=== PATIENT | female | born 1990 | race Caucasian/White ===

== ENCOUNTER 2016-12-25 12:09 | Emergency (ER) | payer SELFPAY ==
[~2016-12-25] VITALS: Ht 162.6 cm; Wt 62.0 kg
[~2016-12-25 12:09] MED LIST: ALBU1AER INH; PRED20 PO
[2016-12-25 12:17] VITALS: BP 124/94; PULSE 65; TEMP 98
[2016-12-25] MEDS ORDERED: ONDANSETRON HCL 4 MG/2 ML VIAL IV PUSH ONE (12:45)
[2016-12-25] MEDS ORDERED: SODIUM CHLOR 0.9% 1000 ML INJ 1,000 ML IV ONE (12:45)
[2016-12-25] MEDS ORDERED: MORPHINE SULFATE 4 MG/ML INJ IV PUSH ONE (12:45)
--- NOTE | 2016-12-25 12:57 | PD ---
HPI Chief Complaint: Abdominal Pain Time Seen by Provider: 12:31 Travel History International Travel<30 days: No Contact w/Intl Traveler<30days: No Traveled to known affect area: No History of Present Illness HPI This is a 26-year-old female who presents to the emergency department with sudden onset right lower quadrant abdominal pain that started an hour prior to arrival radiating to her back, constant, severe, sharp and stabbing. She's vomited. She feels very nauseous. She's never had pain like this before. She has had some constipation. She denies any fevers or chills and denies any blood in her urine. She's not . The only Abdominal surgery she's had a . [facility] Past Medical History Medical History: Denies Significant Hx Diminished Hearing: No Immunizations Current: Yes Tetanus Vaccination: Unknown Influenza Vaccination: No ?: Not LMP: now Menopausal: Yes Past Surgical History Section: Yes (2012) Social History Alcohol Use: Yes (1 drink on the weekends per pt) Tobacco Use: Yes (1/4 pack per day ) Substance Use: Yes () Allergies-Medications (Allergen,Severity, Reaction): Coded Allergies: ciprofloxacin (Unverified Allergy, Severe, UNKNOWN, 12/25/16) Reported Meds & Prescriptions Reported Meds & Active Scripts Active Review of Systems Except as stated in HPI: all other systems reviewed are Neg Physical Exam Narrative GENERAL: Uncomfortable appearing SKIN: Focused skin assessment warm and dry. HEAD: Atraumatic. Normocephalic. EYES: Pupils equal and round. No injection or drainage. ENT: Moist mucous membranes NECK: Trachea midline. CARDIOVASCULAR: Regular rate and rhythm. No murmur appreciated. RESPIRATORY: Clear to auscultation. Breath sounds equal bilaterally. GASTROINTESTINAL: Abdomen soft, tender to palpation in the right lower quadrant and suprapubic region with no rebound or guarding. : Right CVA tenderness. MUSCULOSKELETAL: No obvious deformities. NEUROLOGICAL: Awake and alert. No obvious cranial nerve deficits. Moving all extremities. PSYCHIATRIC: Anxious and tearful. Data Data Last Documented VS Vital Signs Date Time Temp Pulse Resp B/P (MAP) Pulse Ox O2 Delivery O2 Flow Rate FiO2 12/25/16 13:57 99 16 108/64 (79) 100 Room Air 12/25/16 12:17 98.0 Orders Orders Ed Urine Pregnancytest Poc (12/25/16 12:39) Complete Blood Count With Diff (12/25/16 12:41) Comprehensive Metabolic Panel (12/25/16 12:41) ^ Insert Iv (12/25/16 12:41) Ct Abd/Pel W/O Iv Contrast (12/25/16 ) Urinalysis - C+S If Indicated (12/25/16 12:41) Morphine Inj (Morphine Inj) (12/25/16 12:45) Ondansetron Inj (Zofran Inj) (12/25/16 12:45) Sodium Chlor 0.9% 1000 Ml Inj (Ns 1000 M (12/25/16 12:45) Morphine Inj (Morphine Inj) (12/25/16 14:00) Ketorolac Inj (Toradol Inj) (12/25/16 14:45) Labs Laboratory Tests Test 12/25/16 12:50 12/25/16 15:00 White Blood Count 11.5 TH/MM3 Red Blood Count 4.77 MIL/MM3 Hemoglobin 13.6 GM/DL Hematocrit 40.7 % Mean Corpuscular Volume 85.2 FL Mean Corpuscular Hemoglobin 28.5 PG Mean Corpuscular Hemoglobin Concent 33.4 % Red Cell Distribution Width 14.9 % Platelet Count 187 TH/MM3 Mean Platelet Volume 10.2 FL Neutrophils (%) (Auto) 75.2 % Lymphocytes (%) (Auto) 13.3 % Monocytes (%) (Auto) 6.6 % Eosinophils (%) (Auto) 2.8 % Basophils (%) (Auto) 2.1 % Neutrophils # (Auto) 8.7 TH/MM3 Lymphocytes # (Auto) 1.5 TH/MM3 Monocytes # (Auto) 0.8 TH/MM3 Eosinophils # (Auto) 0.3 TH/MM3 Basophils # (Auto) 0.2 TH/MM3 CBC Comment AUTO DIFF Differential Comment AUTO DIFF CONFIRMED Blood Urea Nitrogen 11 MG/DL Creatinine 0.87 MG/DL Random Glucose 145 MG/DL Total Protein 6.8 GM/DL Albumin 3.4 GM/DL Calcium Level 8.5 MG/DL Alkaline Phosphatase 48 U/L Aspartate Amino Transf (AST/SGOT) 13 U/L Alanine Aminotransferase (ALT/SGPT) 13 U/L Total Bilirubin 0.4 MG/DL Sodium Level 142 MEQ/L Potassium Level 3.8 MEQ/L Chloride Level 110 MEQ/L Carbon Dioxide Level 23.1 MEQ/L Anion Gap 9 MEQ/L Estimat Glomerular Filtration Rate 80 ML/MIN Urine pH 6.0 Urine Protein TRACE mg/dL Urine Glucose (UA) NEG mg/dL Urine Ketones TRACE mg/dL Urine Occult Blood LARGE Urine Nitrite NEG Urine Bilirubin NEG Urine Leukocyte Esterase TRACE MDM Medical Decision Making Medical Screen Exam Complete: Yes Emergency Medical Condition: Yes Interpretation(s) Mild leukocytosis Electrolytes are reassuring Urinalysis demonstrates trace leukocyte esterase CT abdomen and pelvis demonstrates a 4 mm distal right ureteral stone Differential Diagnosis Nephrolithiasis, ovarian torsion, ovarian cyst rupture, appendicitis, pyelonephritis Narrative Course This is a 26-year-old female who presents to the emergency department with sudden onset severe right sided abdominal pain. Labs are obtained which are reassuring. Urinalysis is equivocal for UTI. CT abdomen and pelvis demonstrates a 4 mm distal stone. Patient was given several doses of morphine and was reassessed several times. She was given IV fluids and Zofran. She feels much better upon discharge. I referred her to a urologist as an outpatient. Diagnosis Primary Impression: Kidney stone Referrals: Jaret Alarcon DO Patient Instructions: General Instructions Additional Instructions: If you develop fever, persistent vomiting, back pain, or inability to eat return to the emergency department as your urine infection may have progressed to a kidney infection. Complete your antibiotics as prescribed. Stay well hydrated with Gatorade or water. Followup with your primary care physician in 2-3 days if your symptoms have not resolved. Med/Other Pt SpecificInfo: Prescription(s) given Scripts Ondansetron Odt (Zofran Odt) 4 Mg Tab 4 MG SL Q6HR Y for Nausea/Vomiting, #15 TAB 0 Refills Prov: Marla Zamora MD 12/25/16 Hydrocodone-Acetaminophen (Lortab) 5-325 Mg Tab 1-2 TAB PO Q6H Y for PAIN, #10 TAB 0 Refills Prov: Marla Zamora MD 12/25/16 Cephalexin (Keflex) 500 Mg Cap 500 MG PO Q12H for Infection for 7 Days, #14 CAP 0 Refills Prov: Marla Zamora MD 12/25/16 Disposition: 01 DISCHARGE HOME Condition: Stable Marla Zamora MD Dec 25, 2016 12:57
[2016-12-25 13:01] LABS: AUTOMATED NEUTROPHIL # 8.7 TH/MM3 (1.8-7.7); BASOPHIL # 0.2 TH/MM3 (0-0.2); BASOPHIL % 2.1 % (0.0-2.0); EOSINOPHIL # 0.3 TH/MM3 (0-0.4); EOSINOPHIL % 2.8 % (0.0-4.0); HEMATOCRIT 40.7 % (35.0-46.0); LYMPH % 13.3 % (9.0-44.0); LYMPHOCYTE # 1.5 TH/MM3 (1.0-4.8); MEAN CELL VOLUME 85.2 FL (80.0-100.0); MEAN CORPUSCULAR HEMOGLOBIN 28.5 PG (27.0-34.0); MEAN CORPUSCULAR HGB CONC 33.4 % (32.0-36.0); MONO % 6.6 % (0.0-8.0); NEUT % 75.2 % (16.0-70.0); PLATELET COUNT 187 TH/MM3 (150-450); RED BLOOD COUNT 4.77 MIL/MM3 (4.00-5.30); RED CELL DISTRIBUTION WIDTH 14.9 % (11.6-17.2); WHITE BLOOD COUNT 11.5 TH/MM3 (4.0-11.0)
[2016-12-25 13:03] LABS: HEMO FLAGS AUTO DIFF
[2016-12-25 13:09] LABS: CHLORIDE 110 MEQ/L (98-107); POTASSIUM 3.8 MEQ/L (3.5-5.1); SODIUM (NA) 142 MEQ/L (136-145)
[2016-12-25 13:13] LABS: ANION GAP 9 MEQ/L (5-15); BICARBONATE 23.1 MEQ/L (21.0-32.0); BLOOD UREA NITROGEN 11 MG/DL (7-18)
[2016-12-25 13:16] LABS: ALT (GPT) 13 U/L (10-53); AST (GOT) 13 U/L (15-37); GLOMERULAR FILTRATION RATE 80 ML/MIN (>89)
[2016-12-25 13:17] LABS: TOTAL BILIRUBIN ADULT 0.4 MG/DL (0.2-1.0)
[2016-12-25 13:19] LABS: ALKALINE PHOSPHATASE 48 U/L (45-117); SCAN/DIFF AUTO DIFF CONFIRMED
[2016-12-25 13:57] VITALS: BP 108/64; PULSE 99; RESP 16; O2SAT 100
[2016-12-25] MEDS ORDERED: MORPHINE SULFATE 2 MG/ML INJ IV PUSH ONE (14:00)
--- NOTE | 2016-12-25 14:00 | RADRPT ---
EXAM DATE/TIME: 12/25/2016 12:59 [facility] COMPARISON: No previous studies available for comparison. INDICATIONS : Right flank pain. ORAL CONTRAST: No oral contrast ingested. RADIATION DOSE: 9.37 CTDIvol (mGy) MEDICAL HISTORY : None SURGICAL HISTORY : c section ENCOUNTER: Initial ACUITY: 2 days PAIN SCALE: 10/10 LOCATION: Right flank TECHNIQUE: Volumetric scanning of the abdomen and pelvis was performed. Using automated exposure control and ad justment of the mA and/or kV according to patient size, radiation dose was kept as low as reasonably achievable to obtain optimal diagnostic quality images. DICOM format image data is available electro nically for review and comparison. FINDINGS: Examination of the lung bases demonstrates no abnormality. No pleural fluid is identified. No pulmona ry nodules are present. The liver is normal in size and free of focal defects. The spleen is mildly e nlarged. The adrenal glands are unremarkable. There is a single stone within the left kidney without hydronephrosis measuring 1 mm. There is a 4 mm distal right ureteral stone with mild hydronephrosis and hydroureter. There is a single stone within the gallbladder without wall thickening or pericholec ystic fluid measuring 8 mm CONCLUSION: 1. 4 mm distal right ureteral stone with mild right hydronephrosis and hydroureter. 2. Tiny 1 mm nonobstructing left renal stone 3. Cholelithiasis Didier Camacho MD on December 25, 2016 at 13:57 Board Certified Radiologist. This report was verified electronically.
[2016-12-25] MEDS ORDERED: KETOROLAC TROMETHAMINE 30 MG/ML (IVP) VIAL IV PUSH ONE (14:45)
[2016-12-25 15:13] LABS: BLOOD, URINE LARGE (NEG); GLUCOSE,URINE NEG (NEG); KETONE, URINE TRACE mg/dL (NEG); NITRITE,URINE NEG (NEG)
[2016-12-25 15:30] LABS: METHOD OF COLLECTION CLEAN CATCH; URINE COLOR YELLOW (YELLW/STRAW)
[2016-12-25 15:33] LABS: COMMENT (UR) CULTURE INDICATED; COMMENT2 (UR) MUCOUS PRESENT; CULTURE IF INDICATED CULTURE INDICATED; RBC, URINE 15-19 /hpf (0-3); SQUAMOUS EPITHELIAL CELL URINE 0-5 /hpf (0-5)
[2016-12-25] MEDS ORDERED: HYDR-3533 PO (15:34)
[2016-12-25] MEDS ORDERED: CEPH-460 PO (15:34)
[2016-12-25] MEDS ORDERED: ZOFR4TAB3 SL (15:34)
[2016-12-25 16:06] VITALS: BP 114/75; PULSE 64; RESP 16; O2SAT 100
== END 2016-12-25 16:07 | disposition home or self-care (01) ==
LOC: PHED 12:09
DX: F17.210 Nicotine dependence, cigarettes, uncomplicated (principal); F12.90 Cannabis use, unspecified, uncomplicated; N20.0 Calculus of kidney; B96.89 Other specified bacterial agents as the cause of diseases classified elsewhere
CPT/HCPCS: 74176; 80053; 81001; 84703; 85025; 87086; 96361; 96374; 96375; 96376; 99285; J1885; J2270; J2405; J7030

== ENCOUNTER 2016-12-30 15:23 | Emergency (ER) | payer MEDICAID ==
[~2016-12-30] VITALS: Ht 162.6 cm; Wt 65.0 kg
[~2016-12-30 15:23] MED LIST changes: -ALBU1AER INH; +CEPH-460 PO; +HYDR-3533 PO; -PRED20 PO; +ZOFR4TAB3 SL
[2016-12-30 15:27] VITALS: BP 115/81; PULSE 75; RESP 15; TEMP 97.9; O2SAT 97
[2016-12-30] MEDS ORDERED: SODIUM CHLOR 0.9% 1000 ML INJ 1,000 ML IV SCH (15:54)
[2016-12-30] MEDS ORDERED: MORPHINE SULFATE 4 MG/ML INJ IV PUSH ONE ×2 (16:00→17:00)
[2016-12-30] MEDS ORDERED: SODIUM CHLORIDE 0.9% FLUSH 10 ML FLUSH IV FLUSH PRN (16:00)
[2016-12-30] MEDS ORDERED: KETOROLAC TROMETHAMINE 30 MG/ML (IVP) VIAL IVP ONE (16:00)
[2016-12-30] MEDS ORDERED: ONDANSETRON HCL 4 MG/2 ML VIAL IVP ONE (16:00)
--- NOTE | 2016-12-30 16:02 | PD ---
HPI Chief Complaint: Abdominal Pain Time Seen by Provider: 15:40 Travel History International Travel<30 days: No Contact w/Intl Traveler<30days: No Traveled to known affect area: No History of Present Illness HPI The patient is a 26-year-old female who presents to the emergency department for right flank pain. The patient was seen in emergency department on December 25, 2016 for right flank pain. The patient was diagnosed with a 4 mm distal right ureteral stone and was discharged home and advised to follow-up with a urologist. The patient states she does not have insurance, therefore, did not follow-up with the urologist. The patient was doing well for the last 3 -4 days until earlier today when the right flank pain started once again. The patient complains of dysuria, frequency, urgency, with very little urine output. The pain radiates from the right flank Into the right mid back. She denies any fever, chills, or sweats. Last menstrual cycle was several weeks ago , she denies . She denies any vaginal discharge or bleeding. Symptoms are moderate, exacerbated by recent kidney stone, and there are no current alleviating factors. PFSH Past Medical History Diminished Hearing: No Kidney Stones: Yes Immunizations Current: Yes ?: Not LMP: 1.5 WEEKS AGO Menopausal: Yes Past Surgical History Section: Yes (2012) Social History Alcohol Use: Yes (1 drink on the weekends per pt) Tobacco Use: Yes (1/4 pack per day ) Substance Use: Yes (mj) Allergies-Medications (Allergen,Severity, Reaction): Coded Allergies: ciprofloxacin (Unverified Allergy, Severe, UNKNOWN, 12/30/16) Reported Meds & Prescriptions Reported Meds & Active Scripts Active Ibuprofen 600 Mg Tab 600 Mg PO Q6H PRN Puposky (Hydrocodone-Acetaminophen) 5-325 mg Tab 1 Tab PO Q6H PRN Bactrim DS (Sulfamethoxazole-Trimethoprim) 800-160 Mg Tab 1 Tab PO BID Flomax (Tamsulosin HCl) 0.4 Mg Cap 0.4 Mg PO HS 7 Days Zofran Odt (Ondansetron Odt) 4 Mg Tab 4 Mg SL Q6HR PRN Lortab (Hydrocodone-Acetaminophen) 5-325 Mg Tab 1-2 Tab PO Q6H PRN Keflex (Cephalexin) 500 Mg Cap 500 Mg PO Q12H 7 Days Review of Systems Except as stated in HPI: all other systems reviewed are Neg General / Constitutional: No: Fever Cardiovascular: No: Chest Pain or Discomfort Respiratory: No: Shortness of Breath Gastrointestinal: No: Nausea, Vomiting, Abdominal Pain Genitourinary: Positive: Urgency, Frequency, Dysuria, Flank Pain, No: Hematuria Skin: No Rash Physical Exam Narrative GENERAL: Awake, alert, pleasant 26-year-old female who appears her stated age and is in no acute respiratory distress. SKIN: Focused skin assessment warm/dry. HEAD: Atraumatic. Normocephalic. EYES: No injection or drainage. ENT: No nasal bleeding or discharge. Mucous membranes pink and moist. NECK: Trachea midline. No JVD. CARDIOVASCULAR: Regular rate and rhythm. No murmur appreciated. RESPIRATORY: No accessory muscle use. Clear to auscultation. Breath sounds equal bilaterally. GASTROINTESTINAL: Abdomen soft, mild tenderness over the right flank. Negative McBurney's. Negative Perales's. Back: Right CVA tenderness. MUSCULOSKELETAL: No obvious deformities. No clubbing. No cyanosis. No edema. NEUROLOGICAL: Awake and alert. No obvious cranial nerve deficits. Motor grossly within normal limits. Normal speech. PSYCHIATRIC: Appropriate mood and affect; insight and judgment normal. Data Data Last Documented VS Vital Signs Date Time Temp Pulse Resp B/P (MAP) Pulse Ox O2 Delivery O2 Flow Rate FiO2 12/30/16 16:17 98 Room Air 12/30/16 15:27 97.9 75 15 115/81 (92) Orders Orders Ed Urine Pregnancytest Poc (12/30/16 15:46) Basic Metabolic Panel (Bmp) (12/30/16 15:54) Complete Blood Count With Diff (12/30/16 15:54) Urinalysis - C+S If Indicated (12/30/16 15:54) Iv Access Insert/Monitor (12/30/16 15:54) Ecg Monitoring (12/30/16 15:54) Oximetry (12/30/16 15:54) Morphine Inj (Morphine Inj) (12/30/16 16:00) Ondansetron Inj (Zofran Inj) (12/30/16 16:00) Sodium Chlor 0.9% 1000 Ml Inj (Ns 1000 M (12/30/16 15:54) Sodium Chloride 0.9% Flush (Ns Flush) (12/30/16 16:00) Ketorolac Inj (Toradol Inj) (12/30/16 16:00) Urine Culture (12/30/16 16:00) Ceftriaxone Inj (Rocephin Inj) (12/30/16 16:45) Morphine Inj (Morphine Inj) (12/30/16 17:00) Labs Laboratory Tests Test 12/30/16 16:00 White Blood Count 8.6 TH/MM3 Red Blood Count 4.79 MIL/MM3 Hemoglobin 13.6 GM/DL Hematocrit 40.7 % Mean Corpuscular Volume 85.0 FL Mean Corpuscular Hemoglobin 28.3 PG Mean Corpuscular Hemoglobin Concent 33.3 % Red Cell Distribution Width 14.9 % Platelet Count 181 TH/MM3 Mean Platelet Volume 9.5 FL Neutrophils (%) (Auto) 54.6 % Lymphocytes (%) (Auto) 27.9 % Monocytes (%) (Auto) 10.9 % Eosinophils (%) (Auto) 4.7 % Basophils (%) (Auto) 1.9 % Neutrophils # (Auto) 4.7 TH/MM3 Lymphocytes # (Auto) 2.4 TH/MM3 Monocytes # (Auto) 0.9 TH/MM3 Eosinophils # (Auto) 0.4 TH/MM3 Basophils # (Auto) 0.2 TH/MM3 CBC Comment DIFF FINAL Differential Comment Urine Color STRAW Urine Turbidity CLOUDY Urine pH 8.5 Urine Specific Alpha 1.017 Urine Protein NEG mg/dL Urine Glucose (UA) NEG mg/dL Urine Ketones NEG mg/dL Urine Occult Blood TRACE Urine Nitrite NEG Urine Bilirubin NEG Urine Leukocyte Esterase SMALL Urine RBC 0-3 /hpf Urine WBC 9-14 /hpf Urine Squamous Epithelial Cells 0-5 /hpf Urine Amorphous Sediment LARGE Urine Bacteria OCC /hpf Microscopic Urinalysis Comment CULTURE INDICATED Blood Urea Nitrogen 8 MG/DL Creatinine 0.94 MG/DL Random Glucose 80 MG/DL Calcium Level 8.4 MG/DL Sodium Level 142 MEQ/L Potassium Level 4.1 MEQ/L Chloride Level 107 MEQ/L Carbon Dioxide Level 29.1 MEQ/L Anion Gap 6 MEQ/L Estimat Glomerular Filtration Rate 73 ML/MIN MDM Medical Decision Making Medical Screen Exam Complete: Yes Emergency Medical Condition: Yes Medical Record Reviewed: Yes Interpretation(s) Laboratory Tests Test 12/30/16 16:00 White Blood Count 8.6 TH/MM3 Red Blood Count 4.79 MIL/MM3 Hemoglobin 13.6 GM/DL Hematocrit 40.7 % Mean Corpuscular Volume 85.0 FL Mean Corpuscular Hemoglobin 28.3 PG Mean Corpuscular Hemoglobin Concent 33.3 % Red Cell Distribution Width 14.9 % Platelet Count 181 TH/MM3 Mean Platelet Volume 9.5 FL Neutrophils (%) (Auto) 54.6 % Lymphocytes (%) (Auto) 27.9 % Monocytes (%) (Auto) 10.9 % Eosinophils (%) (Auto) 4.7 % Basophils (%) (Auto) 1.9 % Neutrophils # (Auto) 4.7 TH/MM3 Lymphocytes # (Auto) 2.4 TH/MM3 Monocytes # (Auto) 0.9 TH/MM3 Eosinophils # (Auto) 0.4 TH/MM3 Basophils # (Auto) 0.2 TH/MM3 CBC Comment DIFF FINAL Differential Comment Urine Color STRAW Urine Turbidity CLOUDY Urine pH 8.5 Urine Specific Alpha 1.017 Urine Protein NEG mg/dL Urine Glucose (UA) NEG mg/dL Urine Ketones NEG mg/dL Urine Occult Blood TRACE Urine Nitrite NEG Urine Bilirubin NEG Urine Leukocyte Esterase SMALL Urine RBC 0-3 /hpf Urine WBC 9-14 /hpf Urine Squamous Epithelial Cells 0-5 /hpf Urine Amorphous Sediment LARGE Urine Bacteria OCC /hpf Microscopic Urinalysis Comment CULTURE INDICATED Blood Urea Nitrogen 8 MG/DL Creatinine 0.94 MG/DL Random Glucose 80 MG/DL Calcium Level 8.4 MG/DL Sodium Level 142 MEQ/L Potassium Level 4.1 MEQ/L Chloride Level 107 MEQ/L Carbon Dioxide Level 29.1 MEQ/L Anion Gap 6 MEQ/L Estimat Glomerular Filtration Rate 73 ML/MIN Differential Diagnosis Differential diagnosis includes nephrolithiasis, hydronephrosis, acute kidney injury, acute renal failure, UTI, pyelonephritis, atypical appendicitis. Narrative Course IV was established, labs are drawn and sent, and the patient was placed on cardiac telemetry monitoring and continuous pulse oximetry monitoring. The patient was administered morphine, Toradol, Zofran, and IV fluids. I reviewed the patient's EMR, she had a CT performed on December 25 which revealed a 4 mm distal right ureteral stone with mild hydronephrosis and hydroureter. UA at that time had RBCs and WBCs, culture was unremarkable and revealed mixed eleonora. The patient was advised to follow-up with urology at that time per notes. The patient's UA still reveals WBCs, no evidence of blood. Therefore, the patient was administered Rocephin 1 g intravenously. She is advised to stop taking Keflex and take Bactrim as directed. Kidney function is within normal limits. The patient may still have a stone at the UV junction with mild hydronephrosis and is advised to follow-up with urology. She was administered another dose of pain medications and I will place her on Flomax. She will be provided a copy of her labs at discharge. Diagnosis Primary Impression: Nephrolithiasis Additional Impression: UTI (urinary tract infection) Qualified Codes: N30.00 - Acute cystitis without hematuria Patient Instructions: General Instructions Additional Instructions: Medications as directed. Please provide the patient a copy of her labs at discharge. Follow-up with urology. Return if symptoms worsen or progress. Med/Other Pt SpecificInfo: Prescription(s) given, Med Stopped (Stop cephalexin) Scripts Ibuprofen (Ibuprofen) 600 Mg Tab 600 MG PO Q6H Y for Pain/Inflammation, #20 TAB 0 Refills Prov: Leon Arce MD 12/30/16 Hydrocodone-Acetaminophen (Puposky) 5-325 mg Tab 1 TAB PO Q6H Y for PAIN, #15 TAB 0 Refills Prov: Leon Arce MD 12/30/16 Sulfamethoxazole-Trimethoprim (Bactrim DS) 800-160 Mg Tab 1 TAB PO BID for Infection, #14 TAB 0 Refills Prov: Leon Arce MD 12/30/16 Tamsulosin (Flomax) 0.4 Mg Cap 0.4 MG PO HS for Manage Prostate Problems for 7 Days, #30 CAP 0 Refills Prov: Leon Arce MD 12/30/16 Disposition: 01 DISCHARGE HOME Condition: Stable Leon Arce MD Dec 30, 2016 16:02
[2016-12-30 16:12] LABS: AUTOMATED NEUTROPHIL # 4.7 TH/MM3 (1.8-7.7); BASOPHIL # 0.2 TH/MM3 (0-0.2); BASOPHIL % 1.9 % (0.0-2.0); EOSINOPHIL # 0.4 TH/MM3 (0-0.4); EOSINOPHIL % 4.7 % (0.0-4.0); HEMATOCRIT 40.7 % (35.0-46.0); HEMO FLAGS DIFF FINAL; LYMPH % 27.9 % (9.0-44.0); LYMPHOCYTE # 2.4 TH/MM3 (1.0-4.8); MEAN CORPUSCULAR HEMOGLOBIN 28.3 PG (27.0-34.0); MEAN CORPUSCULAR HGB CONC 33.3 % (32.0-36.0); MONO % 10.9 % (0.0-8.0); NEUT % 54.6 % (16.0-70.0); PLATELET COUNT 181 TH/MM3 (150-450); RED BLOOD COUNT 4.79 MIL/MM3 (4.00-5.30); RED CELL DISTRIBUTION WIDTH 14.9 % (11.6-17.2); WHITE BLOOD COUNT 8.6 TH/MM3 (4.0-11.0)
[2016-12-30 16:14] LABS: GLUCOSE,URINE NEG (NEG); KETONE, URINE NEG (NEG); NITRITE,URINE NEG (NEG); PH, URINE 8.5 (5.0-8.5)
[2016-12-30 16:17] VITALS: O2SAT 98
[2016-12-30 16:19] LABS: BLOOD, URINE TRACE (NEG)
[2016-12-30 16:22] LABS: POTASSIUM 4.1 MEQ/L (3.5-5.1); URINE COLOR STRAW (YELLW/STRAW)
[2016-12-30 16:24] LABS: BICARBONATE 29.1 MEQ/L (21.0-32.0)
[2016-12-30 16:26] LABS: BACTERIA, URINE OCC /hpf; COMMENT (UR) CULTURE INDICATED; CULTURE IF INDICATED CULTURE INDICATED; RBC, URINE 0-3 /hpf (0-3); SQUAMOUS EPITHELIAL CELL URINE 0-5 /hpf (0-5)
[2016-12-30] MEDS ORDERED: cefTRIAXone INJ 1,000 MG in SODIUM CHLORIDE 0.9% INJ 100 ML IV ONE (16:45)
[2016-12-30] MEDS ORDERED: TAMS5CAP PO (16:53)
[2016-12-30] MEDS ORDERED: BACT800T5 PO (16:53)
[2016-12-30] MEDS ORDERED: IBUP-232 PO (16:53)
[2016-12-30] MEDS ORDERED: NORC5TAB PO (16:53)
[2016-12-30 17:46] VITALS: BP 110/69; PULSE 76; RESP 16; O2SAT 100
== END 2016-12-30 17:56 | disposition home or self-care (01) ==
LOC: PHED 15:23
DX: N13.2 Hydronephrosis with renal and ureteral calculous obstruction (principal); N30.00 Acute cystitis without hematuria; B96.89 Other specified bacterial agents as the cause of diseases classified elsewhere
CPT/HCPCS: 80048; 81001; 84703; 85025; 87086; 96361; 96365; 96375; 96376; 99284; J0696; J1885; J2270; J2405; J7030

== ENCOUNTER 2017-03-06 12:00 | Emergency (ER) | payer MEDICAID ==
[~2017-03-06] VITALS: Ht 162.6 cm; Wt 63.0 kg
[~2017-03-06 12:00] MED LIST changes: +BACT800T5 PO; +IBUP-232 PO; +NORC5TAB PO; +TAMS5CAP PO
[2017-03-06 12:03] VITALS: BP 121/67; PULSE 97; RESP 16; TEMP 98.6; O2SAT 96
--- NOTE | 2017-03-06 13:07 | RADRPT ---
EXAM DATE/TIME: 03/06/2017 12:53 [facility] COMPARISON: No previous studies available for comparison. INDICATIONS : Fell on stairs, left foot pain MEDICAL HISTORY : None. SURGICAL HISTORY : None. ENCOUNTER: Initial ACUITY: 1 day PAIN SCORE: 7/10 LOCATION: Left foot FINDINGS: Transverse fracture base of the fifth metatarsal. No other fractures. CONCLUSION: Fracture base of fifth metatarsal Boyd Betancourt MD FACR on March 06, 2017 at 13:05 Board Certified Radiologist. This report was verified electronically.
[2017-03-06] MEDS ORDERED: KETOROLAC TROMETHAMINE 60 MG/2 ML (IM) VIAL IM ONE (13:30)
[2017-03-06] MEDS ORDERED: IBUP1TAB7 PO (13:33)
--- NOTE | 2017-03-06 13:33 | PD ---
HPI Chief Complaint: Injury Time Seen by Provider: 12:31 Travel History International Travel<30 days: No Contact w/Intl Traveler<30days: No Traveled to known affect area: No History of Present Illness HPI 26-year-old female with left foot pain after twisting injury last night. Patient reports she had a mechanical fall which caused her to twist her ankle and foot. No head injury. No loss consciousness. Pain over the dorsal aspect of the left foot. She reports normal sensation and full range of motion of the foot and toes. Pain severity 6/10. Aggravated by weightbearing and relieved with rest. PFSH Past Medical History Medical History: Denies Significant Hx Hx Anticoagulant Therapy: No Diminished Hearing: No Kidney Stones: Yes Immunizations Current: Yes Tetanus Vaccination: < 5 Years Influenza Vaccination: No ?: Not LMP: 3 WEEKS Menopausal: Yes Past Surgical History Section: Yes (2012) Social History Alcohol Use: Yes (1 drink on the weekends per pt) Tobacco Use: Yes (03/15 PK) Substance Use: Yes () Allergies-Medications (Allergen,Severity, Reaction): Coded Allergies: ciprofloxacin (Unverified Allergy, Severe, UNKNOWN, 03/06/17) Reported Meds & Prescriptions Reported Meds & Active Scripts Active Ibuprofen 800 Mg Tab 800 Mg PO Q6HR PRN Review of Systems Except as stated in HPI: all other systems reviewed are Neg Physical Exam Narrative GENERAL: Alert well-appearing female. SKIN: Warm and dry. Ecchymosis to the left foot dorsal aspect HEAD: Normocephalic. Atraumatic EYES: No scleral icterus. No injection or drainage. NECK: Supple, trachea midline. No cervical midline tenderness CARDIOVASCULAR: Regular rate and rhythm without murmurs, gallops, or rubs. No chest wall tenderness. RESPIRATORY: Breath sounds equal bilaterally. No accessory muscle use. GASTROINTESTINAL: Abdomen soft, non-tender, nondistended. MUSCULOSKELETAL: No cyanosis. Left foot: Notable swelling and ecchymosis to the dorsal aspect. Tenderness over the fourth and fifth metatarsals. Normal sensation. Able to flex and extend the toes. Brisk cap refill. 2+ dorsal pedis pulse BACK: Nontender without obvious deformity. No CVA tenderness. Data Data Last Documented VS Vital Signs Date Time Temp Pulse Resp B/P (MAP) Pulse Ox O2 Delivery O2 Flow Rate FiO2 03/06/17 12:03 98.6 97 16 121/67 (85) 96 Orders Orders Foot, Complete ([id number]) (03/06/17 ) Splint Or Brace Apply/Monitor (03/06/17 13:26) Ketorolac Inj (Toradol Inj) (03/06/17 13:30) Ed Discharge Order (03/06/17 14:02) Fiberglass Short Leg Splint Ad (03/06/17 ) MDM Medical Decision Making Medical Screen Exam Complete: Yes Emergency Medical Condition: Yes Differential Diagnosis Metatarsal fracture, sprain, contusion Narrative Course 26-year-old female with left foot pain after twisting injury last night. Patient reports she had a mechanical fall which caused her to twist her ankle and foot. No head injury. No loss consciousness. Pain over the dorsal aspect of the left foot. The extremity is neurovascularly intact. No deformity. She has a fifth metatarsal fracture. Posterior short leg splint and crutches provided. Patient was encouraged ice and elevate the extremity. Follow-up with orthopedics/podiatry. She verbalizes understanding and agrees to plan Diagnosis Primary Impression: Fracture of fifth metatarsal bone Qualified Codes: S92.355A - Nondisplaced fracture of fifth metatarsal bone, left foot, initial encounter for closed fracture Referrals: Orthopedist Referral Management Liaison Departure Forms: Tests/Procedures, Work Release Enter return to work date: Mar 08, 2017 Special Instructions: May return to work 03/08/17. No prolonged standing. Please provide stool or chair so that she may sit Additional Instructions: Ice and elevate the extremity. Use crutches for weightbearing. Take Motrin every 6 hours as needed for pain. Make an appointment for follow-up with podiatry Scripts Ibuprofen (Ibuprofen) 800 Mg Tab 800 MG PO Q6HR Y for PAIN, #40 TAB 0 Refills Prov: Arianna Morris 03/06/17 Disposition: 01 DISCHARGE HOME Condition: Stable Arianna Morris Mar 06, 2017 13:33
== END 2017-03-06 14:07 | disposition home or self-care (01) ==
LOC: PHEFT 12:00
DX: S92.352A Displaced fracture of fifth metatarsal bone, left foot, initial encounter for closed fracture (principal); F17.200 Nicotine dependence, unspecified, uncomplicated; X50.1XXA Overexertion from prolonged static or awkward postures, initial encounter; Z87.442 Personal history of urinary calculi
CPT/HCPCS: 29515; 73630; 96372; 99284; E0113; J1885

== ENCOUNTER 2017-05-15 20:33 | Inpatient (IN) | payer MEDICAID, OTHER ==
[~2017-05-15] VITALS: Ht 165.1 cm; Wt 63.0 kg
[~2017-05-15 20:33] MED LIST changes: -BACT800T5 PO; -CEPH-460 PO; -HYDR-3533 PO; -IBUP-232 PO; +IBUP1TAB7 PO; -NORC5TAB PO; -TAMS5CAP PO; -ZOFR4TAB3 SL
[2017-05-15] MEDS ORDERED: IOHEXOL 350 MG/ML 10 ML VIAL (for RAD DIAG) IVCONTRAST ONE (20:34)
[2017-05-15 20:42] VITALS: BP 126/83; PULSE 88; RESP 20; TEMP 98; O2SAT 98
[2017-05-15 20:45] VITALS: BP 122/66; PULSE 88; RESP 20; O2SAT 98
[2017-05-15] MEDS ORDERED: SODIUM CHLOR 0.9% 1000 ML INJ 1,000 ML IV SCH (20:56)
[2017-05-15] MEDS ORDERED: DIPHTH/TETANUS/ACEL PERTUSSIS (BOOSTER) 0.5 ML VIAL/PFS IM ONE (21:00)
[2017-05-15] MEDS ORDERED: ceFAZolin 2 GM PREMIX 50 ML IV ONE (21:00)
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
[2017-05-15 21:43] VITALS: RESP 20
[2017-05-15 21:45] LABS: AUTOMATED NEUTROPHIL # 16.8 TH/MM3 (1.8-7.7); BASOPHIL # 0.1 TH/MM3 (0-0.2); BASOPHIL % 0.4 % (0.0-2.0); EOSINOPHIL # 0.3 TH/MM3 (0-0.4); EOSINOPHIL % 1.5 % (0.0-4.0); HEMATOCRIT 44.5 % (35.0-46.0); HEMOGLOBIN 15.1 GM/DL (11.6-15.3); LYMPH % 16.7 % (9.0-44.0); LYMPHOCYTE # 3.6 TH/MM3 (1.0-4.8); MEAN CELL VOLUME 88.7 FL (80.0-100.0); MEAN CORPUSCULAR HGB CONC 33.9 % (32.0-36.0); MEAN PLATELET VOLUME 9.4 FL (7.0-11.0); MONO % 3.9 % (0.0-8.0); MONOCYTE # 0.9 TH/MM3 (0-0.9); NEUT % 77.5 % (16.0-70.0); PLATELET COUNT 388 TH/MM3 (150-450); RED BLOOD COUNT 5.02 MIL/MM3 (4.00-5.30); RED CELL DISTRIBUTION WIDTH 14.3 % (11.6-17.2); WHITE BLOOD COUNT 21.8 TH/MM3 (4.0-11.0)
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
[2017-05-15 21:58] LABS: ALBUMIN 3.7 GM/DL (3.4-5.0); ALKALINE PHOSPHATASE 89 U/L (45-117); ALT (GPT) 35 U/L (10-53); AST (GOT) 66 U/L (15-37); BLOOD UREA NITROGEN 11 MG/DL (7-18); CALCIUM 8.7 MG/DL (8.5-10.1); CHLORIDE 109 MEQ/L (98-107); CREATININE 0.85 MG/DL (0.50-1.00); GLOMERULAR FILTRATION RATE 81 ML/MIN (>89); GLUCOSE,RANDOM 119 MG/DL (74-106); INTERNATIONAL NORMALIZED RATIO 1.1 RATIO; SODIUM (NA) 143 MEQ/L (136-145); TOTAL BILIRUBIN ADULT 0.4 MG/DL (0.2-1.0)
[2017-05-15 22:01] LABS: PROTHROMBIN TIME - PATIENT 10.8 SEC (9.8-11.6)
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
[2017-05-15 22:52] VITALS: BP 125/80; PULSE 72; RESP 20; O2SAT 98
[2017-05-15] MEDS ORDERED: MORPHINE SULFATE 4 MG/ML INJ IV PUSH ONE (23:30)
[2017-05-15] MEDS ORDERED: ONDANSETRON HCL 4 MG/2 ML VIAL IV PUSH ONE (23:30)
[2017-05-15] MEDS: SODIUM CHLORIDE 0.9% FLUSH 10 ML FLUSH IVF PRN (23:47)
[2017-05-15] MEDS ORDERED: LACTATED RINGER'S 1000 ML INJ 1,000 ML IV SCH (23:55)
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
[2017-05-16] MEDS ORDERED: CHLORHEXIDINE GLUCONATE 2 % 1 PACK (2 CLOTHS) TOP PRN
[2017-05-16] MEDS ORDERED: MAGNESIUM HYDROXIDE SUSP 30 ML CUP PO PRN
[2017-05-16] MEDS ORDERED: ONDANSETRON HCL 4 MG/2 ML VIAL IV PUSH PRN
[2017-05-16] MEDS ORDERED: ACETAMINOPHEN/HYDROcodone 325 MG/5 MG TAB PO PRN
[2017-05-16] MEDS ORDERED: MISCELLANEOUS NURSING INFORMATION XX SCH
[2017-05-16 00:14] LABS: BACTERIA, URINE RARE /hpf; BILIRUBIN, URINE NEG (NEG); BLOOD, URINE TRACE (NEG); GLUCOSE,URINE NEG (NEG); KETONE, URINE NEG (NEG); MUCUS URINE FEW /lpf (OCC); NITRITE,URINE NEG (NEG); SQUAMOUS EPITHELIAL CELL URINE 1 /hpf (0-5); URINE COLOR YELLOW (YELLW/STRAW); URINE LEUKOCYTE ESTERASE NEG (NEG)
[2017-05-16 01:22] VITALS: BP 94/50; PULSE 93; RESP 14; TEMP 98.2; O2SAT 98
[2017-05-16 03:58] VITALS: BP 109/65; PULSE 87; RESP 14; TEMP 98.4; O2SAT 100
[2017-05-16] MEDS: ACETAMINOPHEN/HYDROcodone 325 MG/5 MG TAB PO PRN ×4 (05:08→22:15)
[2017-05-16 05:57] LABS: AUTOMATED NEUTROPHIL # 10.5 TH/MM3 (1.8-7.7); BASOPHIL % 0.3 % (0.0-2.0); EOSINOPHIL # 0.1 TH/MM3 (0-0.4); EOSINOPHIL % 0.5 % (0.0-4.0); HEMATOCRIT 37.7 % (35.0-46.0); HEMOGLOBIN 12.5 GM/DL (11.6-15.3); LYMPH % 9.7 % (9.0-44.0); LYMPHOCYTE # 1.3 TH/MM3 (1.0-4.8); MEAN CELL VOLUME 88.9 FL (80.0-100.0); MEAN CORPUSCULAR HEMOGLOBIN 29.5 PG (27.0-34.0); MEAN CORPUSCULAR HGB CONC 33.2 % (32.0-36.0); MEAN PLATELET VOLUME 8.6 FL (7.0-11.0); MONO % 8.4 % (0.0-8.0); MONOCYTE # 1.1 TH/MM3 (0-0.9); NEUT % 81.1 % (16.0-70.0); PLATELET COUNT 220 TH/MM3 (150-450); RED BLOOD COUNT 4.23 MIL/MM3 (4.00-5.30); RED CELL DISTRIBUTION WIDTH 14.5 % (11.6-17.2); WHITE BLOOD COUNT 12.9 TH/MM3 (4.0-11.0)
[2017-05-16 06:24] LABS: CALCIUM 8.1 MG/DL (8.5-10.1); CREATININE 0.65 MG/DL (0.50-1.00)
[2017-05-16 07:47] VITALS: BP 110/69; PULSE 83; RESP 16; TEMP 97.8; O2SAT 99
[2017-05-16] MEDS ORDERED: DOCUSATE SODIUM 100 MG CAP PO SCH (09:00)
[2017-05-16] MEDS: SODIUM CHLORIDE 0.9% FLUSH 10 ML FLUSH IV FLUSH PRN (09:34)
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
[2017-05-16 11:38] VITALS: BP 121/74; PULSE 76; RESP 16; TEMP 98; O2SAT 100
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
[2017-05-16] MEDS: CHLORHEXIDINE GLUCONATE 2 % 1 PACK (2 CLOTHS) TOP SCH (14:00)
[2017-05-16 15:14] VITALS: BP 123/85; PULSE 92; RESP 14; TEMP 98.1; O2SAT 100
[2017-05-16 20:20] VITALS: BP 121/69; PULSE 92; RESP 17; TEMP 97.9; O2SAT 100
[2017-05-16] MEDS: BACITRACIN TOP OINT 15 GM TUBE TOP SCH (21:00)
[2017-05-16] MEDS: DOCUSATE SODIUM 50 MG/SENNA 8.6 MG TAB PO SCH (21:00)
[2017-05-17 00:30] VITALS: BP 132/80; PULSE 79; RESP 16; TEMP 98.1; O2SAT 100
[2017-05-17] MEDS: CHLORHEXIDINE GLUCONATE 2 % 1 PACK (2 CLOTHS) TOP SCH ×2 (01:13→21:48)
[2017-05-17] MEDS: ACETAMINOPHEN/HYDROcodone 325 MG/5 MG TAB PO PRN ×5 (03:10→21:49)
[2017-05-17 04:49] LABS: AUTOMATED NEUTROPHIL # 8.1 TH/MM3 (1.8-7.7); BASOPHIL # 0.1 TH/MM3 (0-0.2); BASOPHIL % 0.5 % (0.0-2.0); EOSINOPHIL # 0.2 TH/MM3 (0-0.4); HEMATOCRIT 35.4 % (35.0-46.0); HEMOGLOBIN 12.4 GM/DL (11.6-15.3); LYMPH % 13.9 % (9.0-44.0); LYMPHOCYTE # 1.6 TH/MM3 (1.0-4.8); MEAN CELL VOLUME 87.7 FL (80.0-100.0); MEAN CORPUSCULAR HEMOGLOBIN 30.7 PG (27.0-34.0); MEAN PLATELET VOLUME 9.3 FL (7.0-11.0); MONO % 12.9 % (0.0-8.0); MONOCYTE # 1.5 TH/MM3 (0-0.9); NEUT % 70.7 % (16.0-70.0); PLATELET COUNT 181 TH/MM3 (150-450); RED BLOOD COUNT 4.04 MIL/MM3 (4.00-5.30); RED CELL DISTRIBUTION WIDTH 14.1 % (11.6-17.2); WHITE BLOOD COUNT 11.4 TH/MM3 (4.0-11.0)
[2017-05-17 05:12] LABS: CALCIUM 8.4 MG/DL (8.5-10.1); CREATININE 0.63 MG/DL (0.50-1.00)
[2017-05-17 07:22] VITALS: BP 130/78; PULSE 82; RESP 16; TEMP 98.5; O2SAT 100
[2017-05-17 07:38] VITALS: BP 112/74; PULSE 88; RESP 19; TEMP 98; O2SAT 100
[2017-05-17] MEDS: DOCUSATE SODIUM 50 MG/SENNA 8.6 MG TAB PO SCH ×2 (08:26→19:37)
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
[2017-05-17 11:33] VITALS: BP 112/78; PULSE 74; RESP 19; TEMP 98.6; O2SAT 99
[2017-05-17] MEDS ORDERED: POTASSIUM CHLORIDE 10 MEQ CONTROLLED RELEASE TAB PO ONE (11:45)
[2017-05-17] MEDS ORDERED: KETOROLAC TROMETHAMINE 30 MG/ML (IVP) VIAL IV PUSH SCH (12:00)
[2017-05-17] MEDS: KETOROLAC TROMETHAMINE 30 MG/ML (IVP) VIAL IV PUSH SCH ×3 (12:00→21:48)
[2017-05-17] MEDS ORDERED: WALKER WHEELS/F1 MIS (14:58)
[2017-05-17] MEDS ORDERED: WHEEMIS3 (14:58)
[2017-05-17] MEDS ORDERED: PERI PO (15:07)
[2017-05-17] MEDS ORDERED: KETO10 PO (15:07)
[2017-05-17 15:37] VITALS: BP 119/86; PULSE 89; RESP 19; TEMP 98.8; O2SAT 98
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
[2017-05-17] MEDS: BACITRACIN TOP OINT 15 GM TUBE TOP SCH (19:40)
[2017-05-17 20:25] VITALS: BP_SYST 64; PULSE 79; RESP 17; TEMP 97.1; O2SAT 97
[2017-05-18 00:35] VITALS: BP 125/70; PULSE 74; RESP 16; TEMP 97.3; O2SAT 100
[2017-05-18] MEDS: ACETAMINOPHEN/HYDROcodone 325 MG/5 MG TAB PO PRN ×5 (03:04→22:20)
[2017-05-18] MEDS: KETOROLAC TROMETHAMINE 30 MG/ML (IVP) VIAL IV PUSH SCH ×3 (05:17→17:51)
[2017-05-18 07:38] VITALS: BP 113/77; PULSE 68; RESP 19; TEMP 96.9; O2SAT 100
[2017-05-18] MEDS: DOCUSATE SODIUM 50 MG/SENNA 8.6 MG TAB PO SCH ×2 (08:07→20:51)
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
[2017-05-18] MEDS: BACITRACIN TOP OINT 15 GM TUBE TOP SCH ×2 (11:21→20:51)
[2017-05-18 11:53] VITALS: BP 139/61; PULSE 77; RESP 19; TEMP 97.8; O2SAT 98
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
[2017-05-18] MEDS: SODIUM CHLORIDE 0.9% FLUSH 10 ML FLUSH IVF PRN ×2 (13:22→17:51)
[2017-05-18 14:52] VITALS: BP 130/83; PULSE 75; RESP 19; TEMP 97.5; O2SAT 100
[2017-05-18] MEDS: ENOXAPARIN SODIUM 40 MG/0.4 ML SYRINGE SQ SCH (17:59)
[2017-05-18 20:00] VITALS: BP 142/72; PULSE 72; RESP 17; TEMP 97.2; O2SAT 100
[2017-05-19] VITALS (7 sets, daily range): BP systolic 107–130; BP diastolic 65–80; PULSE 70–81; RESP 16–18; TEMP 97–98.6; O2SAT 100
[2017-05-19] MEDS: ACETAMINOPHEN/HYDROcodone 325 MG/5 MG TAB PO PRN ×2 (06:02→09:55)
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
[2017-05-19] MEDS: BACITRACIN TOP OINT 15 GM TUBE TOP SCH ×2 (09:00→20:44)
[2017-05-19] MEDS: DOCUSATE SODIUM 50 MG/SENNA 8.6 MG TAB PO SCH ×2 (09:55→20:44)
[2017-05-19] MEDS: ENOXAPARIN SODIUM 40 MG/0.4 ML SYRINGE SQ SCH (10:30)
[2017-05-19] MEDS ORDERED: ACETAMINOPHEN/HYDROcodone 325 MG/7.5 MG TAB PO PRN (12:15)
[2017-05-19] MEDS: KETOROLAC TROMETHAMINE 30 MG/ML (IVP) VIAL IV PUSH SCH ×2 (12:45→18:53)
[2017-05-19] MEDS: ACETAMINOPHEN/HYDROcodone 325 MG/10 MG TAB PO PRN ×3 (14:45→23:15)
[2017-05-19 18:04] LABS: BILIRUBIN, URINE NEG (NEG); BLOOD, URINE NEG (NEG); GLUCOSE,URINE NEG (NEG); KETONE, URINE NEG (NEG); MUCUS URINE FEW /lpf (OCC); NITRITE,URINE NEG (NEG); SQUAMOUS EPITHELIAL CELL URINE <1 /hpf (0-5); URINE COLOR YELLOW (YELLW/STRAW); URINE LEUKOCYTE ESTERASE MOD (NEG)
[2017-05-20] MEDS: KETOROLAC TROMETHAMINE 30 MG/ML (IVP) VIAL IV PUSH SCH
[2017-05-20 04:00] VITALS: BP 108/75; PULSE 97; RESP 16; TEMP 97.9; O2SAT 97
[2017-05-20] MEDS ORDERED: POVIDONE IODINE 5% (ANTISEPSIS KIT) 4 APPLICATIONS EACH NARE PRN (06:15)
[2017-05-20] MEDS ORDERED: CHLORHEXIDINE GLUCONATE 2 % 1 PACK (2 CLOTHS) TOPICAL PRN (06:15)
[2017-05-20] MEDS ORDERED: LACTATED RINGER'S 1000 ML IV PRN (06:15)
[2017-05-20] MEDS: DOCUSATE SODIUM 50 MG/SENNA 8.6 MG TAB PO SCH ×2 (07:43→21:14)
[2017-05-20 08:00] VITALS: BP 101/69; PULSE 66; RESP 18; TEMP 98.1; O2SAT 100
[2017-05-20] MEDS: SODIUM CHLORIDE 0.9% FLUSH 10 ML FLUSH IV FLUSH PRN (08:16)
[2017-05-20] MEDS: ACETAMINOPHEN/HYDROcodone 325 MG/10 MG TAB PO PRN ×3 (08:16→21:17)
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
[2017-05-20] MEDS ORDERED: CALCTAB19 PO (08:26)
[2017-05-20] MEDS ORDERED: XARE10TA PO (08:26)
[2017-05-20] MEDS ORDERED: HYDR-3583 PO (08:26)
[2017-05-20] MEDS: BACITRACIN TOP OINT 15 GM TUBE TOP SCH ×2 (08:31→21:00)
[2017-05-20] MEDS ORDERED: PROPOFOL 200 MG/20 ML AMP IV ONE (12:00)
[2017-05-20] MEDS ORDERED: ONDANSETRON HCL 4 MG/2 ML VIAL IV ONE (12:00)
[2017-05-20] MEDS ORDERED: DEXAMETHASONE SOD PHOS 4 MG/ML VIAL IV ONE (12:00)
[2017-05-20] MEDS ORDERED: LIDOCAINE HCL 1% PF 5 ML SYRINGE OTHER ONE (12:00)
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
[2017-05-20] MEDS ORDERED: VANCOMYCIN HCL 1000 MG VIAL ONE (13:03)
[2017-05-20] MEDS ORDERED: ceFAZolin INJ 1,000 MG VIAL ONE (13:03)
[2017-05-20] MEDS ORDERED: GENTAMICIN SULFATE 80 MG/2 ML VIAL ONE (13:11)
[2017-05-20] MEDS ORDERED: ACETAMINOPHEN 1000 MG/100 ML 100 ML IV ONE (13:20)
[2017-05-20] MEDS ORDERED: KETAMINE HCL 10 MG/5 ML SYRINGE IV PUSH ONE (13:20)
[2017-05-20] MEDS ORDERED: HYDROmorphone HCL PF 2 MG/ML VIAL ONE (14:32)
[2017-05-20] MEDS: QUEtiapine FUMARATE 25 MG TAB PO SCH ×2 (15:00→21:14)
[2017-05-20] MEDS: GABAPENTIN 300 MG CAP PO SCH ×2 (15:00→16:59)
[2017-05-20] MEDS: clonazePAM 0.5 MG TAB PO SCH ×2 (15:00→21:14)
--- NOTE | 2017-05-20 15:10 | PD.OP ---
cc: Ruiz Slater MD Operative Report Date of Surgery: May 20, 2017 Preoperative Diagnosis: Comminuted right calcaneus fracture Postoperative Diagnosis: Procedure: ORIF right calcaneus Anesthesia: Gen. Surgeon: Ruiz Slater Window Shade Ring Coverer(s): ANAYELI Carrington PA-C The surgical procedure was assisted by my physician assistant associate full professor. My P.A. presence was necessary throughout this case for the manipulation and positioning of the surgical extremity. My P.A. was assisting me throughout the duration of this procedure. The skill set of a physician assistant associate full professor was medically necessary to complete this procedure. During the surgical case the certified appliance service technician was working at the back table and the physician assistant associate full professor was directly assisting me. Operation and Findings: Tourniquet time -- 48 minutes at 250 mmHg Informed consent obtained, operative site was marked. The right foot and ankle were seen and evaluated this morning. Soft tissue swelling had significantly improved and appeared to be ready for surgery. She was brought to the operating room and placed on the operating room table. She was given intravenous sedation , general endotracheal anesthesia. she received IV antibiotics and was placed in the lateral decubitus position. The right Foot and leg were prepped with alcohol, followed by Hibiclens, draped in usual sterile fashion. A time out procedure was preformed. The procedure began with a 4 centimeter incision over the lateral aspect of the calcaneus centers over the subtalar joint. A full thickness flap was carefully elevated. The perineal tendons were also mobilized. Periosteum was elevated off the calcaneous. At this point the leg was elevated. The tourniquet was inflated. Attention was now turned to exposure of the calcaneus fracture and subtalar joint. A Steinmann pin was placed into the talus and into the calcaneus. Laminar embedded case manager was now placed to help distract the fracture. Articular surface was now visualized. Articular surface was in several fragments. The medial fragment was elevated and reduced up to the talus and the K-wire was used to hold provisional fixation. Next, the lateral fragments of the posterior facet were elevated and reduced. The talus was used as a template for reduction. The K-wires were used to hold provisional fixation. The laminar embedded case manager was now used to distract the posterior tuberosity. A Shands pin was placed to help joystick the workday manager tuberosity into appropriate position. Multiple K-wires result provisional fixation. Multiplanar fluoroscopy confirmed well aligned fracture. The anterior process was now reduced. This keyed into appropriate position. Additional K wires were used to hold provisional fixation. At this point a Synthes calcaneus plate was selected. Plate was placed underneath the peroneal tendons. Plate was provisionally held the bone with K wires. 2.7 cortical lag screws were placed through the plate to compress the posterior facet fragments. Good compression was obtained. Additional cortical and locking screws were placed into the plate. 4 small percutaneous incisions were made around the posterior heel. 4 long 3.5 cortical screws were placed in the posterior tuberosity into the anterior process. All screws were predrilled and premeasured for appropriate lengths. Fluoroscopy confirmed appropriate alignment of fracture. Final fluoroscopy confirmed well aligned fracture with well-placed hardware. Wound was thoroughly irrigated. Tourniquet was released. Hemostasis was confirmed. Fascia was closed with 0 Vicryl, subcutaneous tissues closed with 3-0 Vicryl, and skin was closed with 3-0 nylon. Sterile dressings were applied. Patient was placed into a well molded well-padded splint. Patient was transferred to recovery in stable condition. Ruiz Slater MD May 20, 2017 15:10
[2017-05-20] MEDS ORDERED: Post-op Orders (for Pharmacy) XX ONE (15:15)
[2017-05-20] MEDS ORDERED: diphenhydrAMINE HCL 25 MG CAP PO PRN ×2 (15:15)
[2017-05-20] MEDS ORDERED: MORPHINE SULFATE 4 MG/ML INJ IV PUSH PRN (15:15)
[2017-05-20] MEDS ORDERED: NALOXONE HCL 0.4 MG/ML AMP IV PUSH PRN (15:15)
--- NOTE | 2017-05-20 15:15 | RADRPT ---
EXAM DATE/TIME: 05/20/2017 14:54 [facility] COMPARISON: FOOT RIGHT COMPLETE ([id number]), May 15, 2017, 20:56. INDICATIONS : Right calcaneus open reduction internal fixation. MEDICAL HISTORY : None. SURGICAL HISTORY : None. ENCOUNTER: Initial ACUITY: 1 day PAIN SCORE: Non-responsive. LOCATION: Right calcaneus FINDINGS: Two view examination of the right heel demonstrates comminuted fracture secured with a side plate and multiple osseous screws. Fracture fragments appear to be in adequate anatomic alignment. CONCLUSION: Open reduction and internal fixation of the comminuted calcaneal fracture with sideplate and mul tiple osseous screws as above. Cachorro Lucas MD on May 20, 2017 at 15:11 Board Certified Radiologist. This report was verified electronically.
[2017-05-20] MEDS ORDERED: DO NOT ADM ANY ANTICOAGULANT DRUGS PRN (15:40)
[2017-05-20] MEDS ORDERED: *morphine SULFATE 10 MG/ML PERIprocedure ONLY ONE (15:52)
--- NOTE | 2017-05-20 15:54 | PD.ORT.PN ---
Subjective Subjective Remarks POD 0 s/p ORIF right calcaneus stable in pacu Objective Vitals Vital Signs Date Time Temp Pulse Resp B/P (MAP) Pulse Ox O2 Delivery O2 Flow Rate FiO2 05/20/17 08:00 98.1 66 18 101/69 (80) 100 05/20/17 04:00 97.9 97 16 108/75 (86) 97 05/19/17 23:28 97.0 79 18 115/80 (92) 100 05/19/17 20:00 97.5 72 18 116/75 (89) 100 05/19/17 16:05 98.6 81 17 130/77 (94) 100 I/O 05/19/17 05/19/17 05/19/17 05/20/17 05/20/17 05/20/17 07:00 15:00 23:00 07:00 15:00 23:00 Intake Total 600 ml 600 ml 800 ml Output Total 20 ml Balance 600 ml 600 ml 780 ml Intake Oral 600 ml 600 ml IV Total 800 ml Estimated Blood Loss 20 ml # Voids 1 3 2 Result Diagram: 05/17/170 05/17/17 040 Imaging Last 24 hours Impressions Abdomen/Pelvis CT 05/15/172154 Signed Impressions: Service Date/Time: Monday, May 15, 2017 22:16 - CONCLUSION: 1. Mildly displaced fracture left pubic bone and small avulsion fracture right pubic bone. Small hematoma anterior to the bladder. No other fractures identified in the abdomen and pelvis. No solid visceral injury identified. Gallstone in gallbladder. González Cohn MD Pelvis X-Ray 05/15/172055 Signed Impressions: Service Date/Time: Monday, May 15, 2017 20:56 - CONCLUSION: 1. Pubic fractures as above. González Conh MD Head CT 05/15/172055 Signed Impressions: Service Date/Time: Monday, May 15, 2017 21:27 - CONCLUSION: 1. No acute intracranial abnormalities. González Cohn MD Foot X-Ray 05/15/172055 Signed Impressions: Service Date/Time: Monday, May 15, 2017 20:56 - CONCLUSION: 1. Comminuted calcaneus fracture and probable avulsion fracture of posterior talus. González Cohn MD Chest X-Ray 05/15/172055 Signed Impressions: Service Date/Time: Monday, May 15, 2017 20:56 - CONCLUSION: No acute disease. González Cohn MD Cervical Spine CT 05/15/172055 Signed Impressions: Service Date/Time: Monday, May 15, 2017 21:27 - CONCLUSION: Normal examination for a patient of this age. González Cohn MD Ankle X-Ray 05/15/172055 Signed Impressions: Service Date/Time: Monday, May 15, 2017 20:56 - CONCLUSION: 1. Comminuted calcaneal fracture. No fracture or dislocation at the ankle joint. González Cohn MD Objective Remarks RLE: +short leg splint. intact. good cap refill. Assessment & Plan Assessment and Plan 1) Right calcaneus fracture and pubic rami fracture s/p ORIF - POD 0 -NWB -elevate -maintain splint at all times -if doing well with therapy, ok for discharge home on Sat/Sun -f/u with Ojeda or PA in 2 weeks Luther Richards/Sr. Manager Corporate Communications PA May 20, 2017 15:54
[2017-05-20] MEDS ORDERED: MIDAZOLAM HCL 2 MG/2 ML VIAL ONE (16:00)
[2017-05-20] MEDS: LACTATED RINGER'S 1000 ML INJ 1,000 ML IV SCH (16:30)
[2017-05-20 17:00] VITALS: BP 128/77; PULSE 65; RESP 18; TEMP 97.4; O2SAT 98
[2017-05-20 20:00] VITALS: BP 108/66; PULSE 71; RESP 18; TEMP 97.9; O2SAT 97
[2017-05-20 20:22] VITALS: O2SAT 98
[2017-05-20] MEDS: ceFAZolin 2 GM PREMIX 50 ML IV SCH (21:15)
[2017-05-21 00:07] VITALS: BP 94/57; PULSE 102; RESP 18; TEMP 98.9; O2SAT 100
[2017-05-21] MEDS: VANCOMYCIN INJ 1,000 MG in SODIUM CHLOR 0.9% 250 ML INJ 250 ML IV SCH ×2 (01:57→14:00)
[2017-05-21] MEDS: ACETAMINOPHEN/HYDROcodone 325 MG/10 MG TAB PO PRN ×4 (02:04→14:00)
[2017-05-21] MEDS: LACTATED RINGER'S 1000 ML INJ 1,000 ML IV SCH ×2 (02:14→12:30)
[2017-05-21 04:00] VITALS: BP 97/52; PULSE 102; RESP 16; TEMP 99.9; O2SAT 97
[2017-05-21] MEDS: ceFAZolin 2 GM PREMIX 50 ML IV SCH ×2 (05:30→14:00)
[2017-05-21] MEDS: clonazePAM 0.5 MG TAB PO SCH ×2 (05:30→13:50)
--- NOTE | 2017-05-21 07:21 | PD.ORT.PN ---
Subjective Subjective Remarks Aching right foot and ankle. No new complaints. Some mild groin pain. Questions about discharge. Objective Vitals Vital Signs Date Time Temp Pulse Resp B/P (MAP) Pulse Ox O2 Delivery O2 Flow Rate FiO2 05/21/17 04:00 99.9 102 16 97/52 (67) 97 05/21/17 00:07 98.9 102 18 94/57 (69) 100 05/20/17 20:22 98 21 05/20/17 20:00 97.9 71 18 108/66 (80) 97 05/20/17 17:00 97.4 65 18 128/77 (94) 98 05/20/17 16:13 62 16 106/70 (82) 96 Room Air 05/20/17 16:00 64 16 107/71 (83) 97 Room Air 05/20/17 15:45 67 16 136/79 (98) 100 Room Air 05/20/17 15:40 98.4 79 16 114/72 (86) 100 Room Air 05/20/17 08:00 98.1 66 18 101/69 (80) 100 I/O 05/20/17 05/20/17 05/20/17 05/21/17 05/21/17 05/21/17 07:00 15:00 23:00 07:00 15:00 23:00 Intake Total 1280 ml 240 ml Output Total 20 ml Balance 1260 ml 240 ml Intake Oral 480 ml 240 ml IV Total 800 ml Estimated Blood Loss 20 ml # Voids 1 1 # Bowel Movements 0 0 Result Diagram: 05/17/17 0400 05/17/17 0400 Imaging Last 24 hours Impressions Abdomen/Pelvis CT 05/15/172154 Signed Impressions: Service Date/Time: Monday, May 15, 2017 22:16 - CONCLUSION: 1. Mildly displaced fracture left pubic bone and small avulsion fracture right pubic bone. Small hematoma anterior to the bladder. No other fractures identified in the abdomen and pelvis. No solid visceral injury identified. Gallstone in gallbladder. González Cohn MD Pelvis X-Ray 05/15/172055 Signed Impressions: Service Date/Time: Monday, May 15, 2017 20:56 - CONCLUSION: 1. Pubic fractures as above. González Cohn MD Head CT 05/15/172055 Signed Impressions: Service Date/Time: Monday, May 15, 2017 21:27 - CONCLUSION: 1. No acute intracranial abnormalities. González Cohn MD Foot X-Ray 05/15/172055 Signed Impressions: Service Date/Time: Monday, May 15, 2017 20:56 - CONCLUSION: 1. Comminuted calcaneus fracture and probable avulsion fracture of posterior talus. González Cohn MD Chest X-Ray 05/15/172055 Signed Impressions: Service Date/Time: Monday, May 15, 2017 20:56 - CONCLUSION: No acute disease. González Cohn MD Cervical Spine CT 05/15/172055 Signed Impressions: Service Date/Time: Monday, May 15, 2017 21:27 - CONCLUSION: Normal examination for a patient of this age. González Cohn MD Ankle X-Ray 05/15/172055 Signed Impressions: Service Date/Time: Monday, May 15, 2017 20:56 - CONCLUSION: 1. Comminuted calcaneal fracture. No fracture or dislocation at the ankle joint. González Cohn MD Objective Remarks Laying in bed NAD VSS RLE Posterior splint intact, mild swelling, good warmth Wiggle toes freely, sens intact, +cap refill - Seen and evaluated by Dr. Soni Fregoso Assessment & Plan Ortho Post Op Day #: 1 Problem List: Assessment and Plan 1) Right calcaneus fracture and pubic rami fracture s/p ORIF - POD #1 -NWB -elevate -maintain splint at all times - Lovenox as written -Ok to d/c home today -f/u with Lynette or JAYDON in 2 weeks Shaina Doyle May 21, 2017 07:21
[2017-05-21 08:00] VITALS: BP 124/63; PULSE 100; RESP 17; TEMP 98.8; O2SAT 98
[2017-05-21] MEDS: BACITRACIN TOP OINT 15 GM TUBE TOP SCH (09:00)
[2017-05-21] MEDS: QUEtiapine FUMARATE 25 MG TAB PO SCH (10:10)
[2017-05-21] MEDS: DOCUSATE SODIUM 50 MG/SENNA 8.6 MG TAB PO SCH (10:10)
[2017-05-21] MEDS: GABAPENTIN 300 MG CAP PO SCH ×2 (10:10→13:50)
[2017-05-21 12:00] VITALS: BP 121/72; PULSE 81; RESP 17; TEMP 98.1; O2SAT 99
== END 2017-05-21 16:03 | disposition home or self-care (01) | DRG 504 ==
LOC: NEPC 20:33 → NEDA 23:06 → NEPGCP 05-16 00:36 → N06A 05-16 19:19
PROVIDERS: ADMIT Orthopaedic Surgery Orthopaedic Trauma; ATTEND Orthopaedic Surgery Orthopaedic Trauma
PROC: 0QSL04Z Reposition Right Tarsal with Internal Fixation Device, Open Approach (ICD-10-PCS; principal; 2017-05-20 13:26)
DX: S92.011A Displaced fracture of body of right calcaneus, initial encounter for closed fracture (principal); M30.3 Mucocutaneous lymph node syndrome [Kawasaki]; S32.591A Other specified fracture of right pubis, initial encounter for closed fracture; S32.592A Other specified fracture of left pubis, initial encounter for closed fracture; F17.210 Nicotine dependence, cigarettes, uncomplicated; F12.90 Cannabis use, unspecified, uncomplicated; G89.29 Other chronic pain; M54.2 Cervicalgia; M54.9 Dorsalgia, unspecified; F43.23 Adjustment disorder with mixed anxiety and depressed mood; F10.10 Alcohol abuse, uncomplicated; F11.90 Opioid use, unspecified, uncomplicated; F14.90 Cocaine use, unspecified, uncomplicated; F19.90 Other psychoactive substance use, unspecified, uncomplicated; Y90.7 Blood alcohol level of 200-239 mg/100 ml; Z87.442 Personal history of urinary calculi; Z59.0 Homelessness; V47.0XXA Car driver injured in collision with fixed or stationary object in nontraffic accident, initial encounter
CPT/HCPCS: 70450; 71045; 72125; 72170; 73600; 73630; 73650; 73700; 74177; 76000; 80048; 80053; 80307; 81001; 83690; 84702; 84703; 85025; 85384; 85610; 85730; 90471; 90715; 94150; 96365; C1713; J0131; J0690; J1100; J1170; J1580; J1650; J1885; J2250; J2270; J2405; J3010; J3370; J7030; J7050; J7120; Q9967